=== PATIENT | female | born 1980 | race African-American/Black ===

== ENCOUNTER 2024-05-23 11:05 | Emergency (ER) | payer OTHER ==
[~2024-05-23] VITALS: Ht 167.6 cm; Wt 77.0 kg
[2024-05-23 11:09] VITALS: O2SAT 100
[2024-05-23] MEDS ORDERED: METOCLOPRAMIDE HCL 10MG/2ML VIAL IV ONE (12:15)
[2024-05-23 13:12] LABS: HEMATOCRIT. 34.5 % (36.0-48.0); HEMOGLOBIN. 11.4 g/dL (12.0-16.0); MEAN CORPUSCULAR HEMOGLOBIN 30.9 pg (28.0-32.0); MEAN CORPUSCULAR VOLUME 93.6 fL (81.0-99.0); MEAN PLATELET VOLUME 6.7 fl (7.4-10.4); PLATELET 258 x1000/uL (130-400); RED BLOOD CELL COUNT 3.69 mill/uL (4.2-5.4); RED CELL DISTRIBUTION WIDTH 13.6 % (11.6-14.6); WHITE BLOOD COUNT 6.3 x1000/uL (4.5-11.0)
[2024-05-23 13:16] LABS: CHLORIDE 105 mEq/L (98-107); POTASSIUM 3.7 mEq/L (3.5-5.1); SODIUM 137 mEq/L (136-145)
[2024-05-23 13:17] LABS: CALCIUM 9.4 mg/dL (8.7-10.4); CARBON DIOXIDE 23 mEq/L (21-32); DIFFERENTIAL COMMENT 1
[2024-05-23 13:22] LABS: CREATININE 0.9 mg/dL (0.6-1.0); GLUCOSE 83 mg/dL (70-105); UREA NITROGEN BLOOD 10 mg/dL (9-23)
[2024-05-23 13:28] LABS: HCG SCREEN NEGATIVE
[2024-05-23 13:30] LABS: PROTHROMBIN TIME 10.8 sec (9.6-11.0)
[2024-05-23] MEDS ORDERED: LACTATED RINGERS 1,000 ML IV ONE (14:15)
[2024-05-23] MEDS: KETOROLAC 15MG/ML VIAL IV ONE (15:45)
[2024-05-23] MEDS: SODIUM CHLORIDE 0.9% 1,000 ML IV ONE (15:45)
[2024-05-23] MEDS: METOCLOPRAMIDE HCL 10MG/2ML VIAL IV NR (16:00)
[2024-05-23 16:45] LABS: CLARITY URINE CLOUDY (CLEAR); COLOR URINE YELLOW (YELLOW); GLUCOSE URINE NEGATIVE (NEGATIVE); KETONES URINE 2+ (NEGATIVE); LEUKOCYTE ESTERASE URINE NEGATIVE (NEGATIVE); NITRITE URINE NEGATIVE (NEGATIVE); OCCULT BLOOD URINE TRACE (NEGATIVE); PH URINE 6.5 (4.5-8.0); PROTEIN URINE TRACE (NEGATIVE); SPECIFIC GRAVITY URINE 1.012 (1.005-1.030); UROBILINOGEN URINE 0.2 E.U./dL (0.2-1.0)
[2024-05-23 17:44] VITALS: BP 115/79; PULSE 102; RESP 17; TEMP 36.83628; O2SAT 100
[2024-05-23 18:06] LABS: BACTERIA URINE NONE SEEN; RBC URINE NONE SEEN /hpf (0-2); SQUAMOUS EPITHELIAL CELL URINE NONE SEEN /lpf (RARE/1+); WBC URINE NONE SEEN /hpf (0-2)
[2024-05-23 18:44] LABS: PLATELET ESTIMATE NORMAL
== END 2024-05-23 17:47 | disposition home or self-care (01) ==
LOC: ER 11:05
DX: G43.909 Migraine, unspecified, not intractable, without status migrainosus (principal); R55 Syncope and collapse; E11.9 Type 2 diabetes mellitus without complications; I10 Essential (primary) hypertension; J45.909 Unspecified asthma, uncomplicated
CPT/HCPCS: 80048; 81003; 84703; 85025; 85610; 86850; 86900; 86901; 36415; 70450; 96361; 96374; 96375; 99285; J1885; J2765; J7120; J7030; Z7610 ×4